=== PATIENT | male | born 2000 | race Asian ===

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

== ENCOUNTER 2021-10-26 21:58 | Emergency (ER) | payer MEDICAID ==
[~2021-10-26] VITALS: Ht 177.8 cm; Wt 77.3 kg
[2021-10-26 22:04] VITALS: BP 140/77
[2021-10-26] MEDS ORDERED: IBUPROFEN 800 MG TABLET PO ONE (22:30)
== END 2021-10-27 | disposition home or self-care (01) ==
LOC: EMS 21:59
DX: S46.002A Unspecified injury of muscle(s) and tendon(s) of the rotator cuff of left shoulder, initial encounter (principal); W18.39XA Other fall on same level, initial encounter; Y93.89 Activity, other specified; Y92.89 Other specified places as the place of occurrence of the external cause; Y99.8 Other external cause status
CPT/HCPCS: 99283